=== PATIENT | female | born 2000 | race Caucasian/White ===

== ENCOUNTER 2019-01-27 15:12 | Inpatient (IN) | payer OTHER ==
--- NOTE | 2019-01-27 15:49 | ED ---
Psychiatric Complaint - HPI Summary HPI Summary: Patient is a 18 y/o F presenting to [facility] for MHE of SI w/ plan and self- inflicted laceration to left wrist. "Best friend" Maribell brought patient in to ED for evaluation. She has lacerations to left wrist, which she did a couple hours ago. No bleeding at present, no other lacerations noted. SI with plan is reported, patient states that her plan was to cut her wrists. She notes Hx of self-cutting. Patient characterizes todays cutting episode as a suicide attempt. Last cutting episode was in June, states that she had stopped cutting for two years but started again in January of 2018. Patient is an [employer] student and states that she is seeing a PA at , [facility]. Patient has no active therapist, but has had therapy previously. No previous admission for psychiatric reasons reported. She is on 40 mg of fluoxetine. PMHx of asthma endorsed. PSHx of wisdom teeth removal noted. Possible allergy to augmentin noted, states that she got "really sick" when she took it one time previously. FMHx of by suicide of great-aunt and multiple other family members is reported. Home medications reviewed. On triage, pain is denied. Patient is from [place]. LNMP ended a week ago. She is a former social tobacco smoker, notes rare alcohol consumption, and endorses marijuana usage. - History Of Current Complaint Chief Complaint: EDSuicidal Time Seen by Provider: 01/27/19 15:41 Hx Obtained From: Patient, Family/Orthotist - friend Maribell Hx Last Menstrual Period: 01/20/19 ?: No Onset/Duration: Still Present Timing: Constant Severity Initially: Severe - no pain, suicidal with a plan Severity Currently: Moderate - pain denied, but states she is still suicidal with a plan Character: Depressed Aggravating Factor(s): Nothing Alleviating Factor(s): Nothing Associated Signs And Symptoms: Positive: Sleep Disturbance Related History: Positive For: Prior Psychiatric Issues - cutting Has Suicidal: Reports: Thoughts, With A Plan, Demonstrates Gesture - Allergies/Home Medications Allergies/Adverse Reactions: Allergies Allergy/AdvReac Type Severity Reaction Status Date / Time amoxicillin [From Augmentin] Allergy Nausea And Verified 01/27/19 16:30 Vomiting clavulanic acid Allergy Nausea And Verified 01/27/19 16:30 [From Augmentin] Vomiting PMH/Surg Hx/FS Hx/Imm Hx Previously Healthy: No Respiratory History: Reports: Hx Asthma Psychiatric History: Reports: Hx Depression - Surgical History Surgical History: Yes Surgery Procedure, Year, and Place: wisdom teeth removal Infectious Disease History: No Infectious Disease History: Denies: Traveled Outside the [place] in Last 30 Days - Family History Known Family History: Positive: Other - suicide in multiple family members - Social History Occupation: Student Lives: Dormitory/Roommates Alcohol Use: Rare Hx Substance Use: Yes Substance Use Type: Reports: Marijuana Hx Tobacco Use: Yes Smoking Status (MU): Former Smoker Review of Systems Constitutional: Negative Cardiovascular: Negative Respiratory: Negative Gastrointestinal: Negative Positive: no symptoms reported Skin: Other - positive - lacerations of left wrist Neurological: Negative Psychological: Other - positive - SI with plan and attempt Positive: Depressed All Other Systems Reviewed And Are Negative: Yes Physical Exam - Summary Physical Exam Summary: Appearance: Well-appearing, no pain distress, well-nourished Skin: Warm, color reflects adequate perfusion, dry; 3 superficial cuts of left ventral forearm with bleeding controlled. Head: Normal Head/Face inspection, atraumatic Eyes: Conjunctiva clear ENT: Normal inspection Neck: Supple, no nodes, no JVD Respiratory: Lungs clear, normal breath sounds, no respiratory distress Cardio: RRR, No murmur, pulses normal, brisk capillary refill Abdomen: Soft, nontender Bowel sounds: Present Musculoskeletal: Strength Intact/ROM intact, no calf tenderness, no edema. Psychological: Tearful, good eye contact, cooperative Neuro: Alert, muscle tone normal, no focal deficit Triage Information Reviewed: Yes Vital Signs On Initial Exam: Initial Vitals Temp Pulse Resp BP Pulse Ox 98.8 F 67 19 139/89 97 01/27/19 15:23 01/27/19 15:23 01/27/19 15:23 01/27/19 15:23 01/27/19 15:23 Vital Signs Reviewed: Yes Procedures - Sedation Patient Received Moderate/Deep Sedation with Procedure: No Diagnostics - Vital Signs Vital Signs Temp Pulse Resp BP Pulse Ox 01/27/19 15:23 98.8 F 67 19 139/89 97 - Laboratory Result Diagrams: 01/27/19 16:29 01/27/19 16:29 Lab Statement: Any lab studies that have been ordered have been reviewed, and results considered in the medical decision making process. Re-Evaluation - Re-Evaluation First Eval Re-Evaluation Time: 17:33 Change: Unchanged Comment: Patient is medically cleared. Advised annex that urine is still needed. Course/Dx - Course Course Of Treatment: Patient is a 18 y/o F presenting to [facility] for MHE of SI w/ plan and self-inflicted laceration to left wrist. "Best friend" Maribell brought patient in to ED for evaluation. She has lacerations to left wrist, which she did a couple hours ago. No bleeding at present, no other lacerations noted. SI with plan is reported, patient states that her plan was to cut her wrists. She notes Hx of self-cutting. Patient characterizes todays cutting episode as a suicide attempt. Last cutting episode was in June, states that she had stopped cutting for two years but started again in January of 2018. No previous admission for psychiatric reasons noted. She is on 40 mg of fluoxetine. Patient is tearful but with good eye contact and is cooperative. Bloodwork was obtained and WNL. Beta HCG was negative. Patient was medically cleared. Advised annex that urine is still need. UA is negative. She had presumptive positive for cannabinoids on the Utox. Patient's case was reviewed by Dr. Theodore, patient will be a voluntary admit to [facility]. - Differential Dx/Clinical Impression Differential Diagnosis/HQI/PQRI: Positive: Bipolar Disorder, Depression, Suicidal Ideation, Suicidal Gesture Provider Diagnosis: Depression, Self-inflicted laceration of wrist, Suicidal ideation - Physician Notifications Discussed Care Of Patient With: Festus Theodore Time Discussed With Above Provider: 21:12 Instructed by Provider To: Other - Patient's case was reviewed by Dr. Theodore, with "M". Patient will be a voluntary admit to [facility]. Admission status was conveyed to Dr. Hennessy (the other ED MD on duty), who conveyed info to Dr. Lopez, the 's ED MD. Patient Is Medically Stable For: Psych Evaluation Discharge ED - Sign-Out/Discharge Documenting (check all that apply): Patient Departure - admit, voluntary, per Dr. Theodore to [facility] - Discharge Plan Condition: Stable [place] [place] Disposition and Condition Condition: STABLE Disposition: Psychiatric Facility [facility] - Attestation Statements Document Initiated by Scribe: Yes Documenting Scribe: CESAR ESCAMILLA Provider For Whom Scribe is Documenting (Include Credential): CARLOS LOPEZ MD Scribe Attestation: ICESAR, scribed for CARLOS LOPEZ MD on 02/15/19 at 1547. Scribe Documentation Reviewed: Yes Provider Attestation: The documentation as recorded by the CESAR byrd accurately reflects the service I personally performed and the decisions made by me, CARLOS LOPEZ MD Status of Scribe Document: Viewed
[2019-01-27 16:40] LABS: ABS Lymphocytes 1.8 10^3/ul (1.0-4.8); ABS Monocytes 0.5 10^3/ul (0-0.8); ABS Neutrophils 5.1 10^3/ul (1.5-7.7); Eosinophil % 0.6 %; Hematocrit 40 % (35-47); Hemoglobin 13.4 g/dL (12.0-16.0); Lymphocyte % 24.5 %; Mean Corpuscular HGB Conc 34 g/dL (31-36); Mean Corpuscular Hemoglobin 30 pg (27-31); Mean Corpuscular Volume 89 fL (80-97); Mean Platelet Volume 8.3 fL (7.4-10.4); Platelet Count 335 10^3/uL (150-450); Red Blood Count 4.48 10^6 /uL (3.70-4.87); Red Cell Distribution Width 13 % (10-15); White Blood Count 7.5 10^3/uL (3.5-10.8)
[2019-01-27 16:58] LABS: ALT 20 U/L (7-52); AST 22 U/L (13-39); Albumin 4.4 g/dL (3.2-5.2); Albumin/Globulin Ratio 1.6 (1-3); Alkaline Phosphatase 56 U/L (34-104); Anion Gap 7 mmol/L (2-11); BUN/Creatinine Ratio 18.9 (8-20); Blood Urea Nitrogen 14 mg/dL (6-24); CO2 Carbon Dioxide 25 mmol/L (22-32); Calcium 9.5 mg/dL (8.6-10.3); Chloride 106 mmol/L (101-111); EGFR African American 121.1 (>60); EGFR Non-African American 100.1 (>60); Globulin 2.7 g/dL (2-4); Glucose 94 mg/dL (70-100); Potassium 4.1 mmol/L (3.5-5.0); Sodium 138 mmol/L (135-145); Total Protein 7.1 g/dL (6.4-8.9)
[2019-01-27 17:13] LABS: Acetaminophen < 15 mcg/mL; Alcohol < 10 mg/dL (<10); Salicylate < 2.50 mg/dL (<30)
[2019-01-27 17:16] LABS: HCG Pregnancy < 0.60 mIU/mL
[2019-01-27 17:27] LABS: TSH (Thyroid Stimulating Horm) 1.14 mcIU/mL (0.34-5.60)
[2019-01-27 18:30] LABS: Urine Appearance Clear; Urine Bilirubin Negative (Negative); Urine Blood Negative (Negative); Urine Color Straw; Urine Glucose Negative (Negative); Urine Ketones Negative (Negative); Urine Nitrite Negative (Negative); Urine Protein Negative (Negative); Urine Specific Gravity 1.013 (1.010-1.030); Urine Urobilinogen Negative (Negative)
[2019-01-27 18:53] LABS: Urine Benzodiazepine Screen None Detected (None Detect); Urine Opiates Screen None Detected (None Detect)
[2019-01-28] MEDS ORDERED: Al Hydrox/Mg Hydrox/Simet LIQ* 30 ML UDC PO PRN (00:01)
[2019-01-28] MEDS ORDERED: Acetaminophen TAB* 325 MG PO PRN (00:01)
[2019-01-28 08:50] LABS: HDL Cholesterol 61.9 mg/dL
[2019-01-28] MEDS ORDERED: FLUoxetine CAP* 20 MG PO SCH (09:00)
[2019-01-28] MEDS ORDERED: Vitamin THERAPEUTIC TAB PO SCH (09:00)
[2019-01-28 11:30] VITALS: BP 117/65
[2019-01-28] MEDS ORDERED: Lithium Carbonate ER* 450 MG TAB.ER PO SCH (14:08)
--- NOTE | 2019-01-28 23:05 | HP ---
CC: [facility] * HISTORY AND PHYSICAL/DISCHARGE SUMMARY: DATE OF ADMISSION: 01/27/19 DATE OF DISCHARGE: 01/28/19 PROVIDER: Bettie Muñoz NP, Psychiatry. SUPERVISING PHYSICIAN: Festus Theodore MD * (DICTATED BY BETTIE MUÑOZ NP ) JUSTIFICATION FOR ADMISSION: The patient is in need of 24-hour supervision and care secondary to suicidal ideation. CHIEF COMPLAINT: "I have an overwhelming sense of despair that comes in waves. " HISTORY OF PRESENT ILLNESS: The patient is a 18-year-old female who is single and has a history of mood instability and cutting who arrives, brought in by friends by private car and is here on an involuntary status following her inability to get an appointment in time with the psychiatrist and wanting to . On Lolis's voluntary paperwork, her reason for wanting to be admission to being admitted is "wanting to " and then she wrote a little smiley face after it. When I asked her about it, she states that it is millennial humor. She states that she has an overwhelming sense of despair that comes in waves. These waves tend to last for days. The highs can come when she is taking care of herself and these highs include high energy and bad decision making. She states that she is also hyperactive at these times and that mood swings are part of her personality. She states that last year was the first time she could not hide that she needed help. She does have a way of appearing cheerful and pleasant even when internally she is struggling and full of despair. 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 She states the more I have to do the better, otherwise I feel reckless or sad. Lolis's stressors include having a double major plus a minor, doing well in school, being also on the crew team, having friends and being busy most of the time. She cannot say what exactly is making her sad. She does state that it has been going on since she was about 8 years old. Her sleep is often disrupted. Her interests wax and wane. She does feel guilty for being sad. Her energy when she is depressed is lower but when she is not depressed she can be a little bit grandiose and distractible. She has difficulty concentrating much of the time. Her appetite is large. She is able to contain herself. She is chatty but not overly talkative and at times she does have suicidal ideation. PAST PSYCHIATRIC HISTORY: She has no previous admission. She has no psychiatrist at college. She is being prescribed 40 mg of fluoxetine by an SINTER PRESS OPERATOR at [employer] at this time. She comes to the hospital with suicidal ideation, which she states is getting worse over time. She does not have access to weapons. Her previous psychiatric medications have included fluoxetine and she does not recall anything different than that. PAST MEDICAL HISTORY: She has had her wisdom teeth extracted. TRAUMA HISTORY: Denied. FORENSIC ISSUES: Denied. FAMILY HISTORY: Her mother's sister has struggled with mental illness. She is not sure of the diagnosis but suspects that it is bipolar disorder and also that there is addiction involved to pills and notes that she goes to Alcoholics Anonymous. Her father is an alcoholic and his family struggles with alcoholism. Her mother is depressed but does not have treatment. It is suspected that she also has difficulty managing her alcohol use. There was a suicide in the family by her great grandmother's sister. There are no more details about that. SUBSTANCE ABUSE: Lolis is a casual cigarette smoker. She does drink alcohol, but she tries to reduce that due to the acknowledge that alcoholism is in her family. SOCIAL HISTORY: She is from [place], [place] where she lives with her mom and her stepfather, who is a psychologist. She is neither nor partnered right now. She has been having sexual relations with both men and women. She is not in any legal trouble. She is not worried about sexually transmitted infections or other sexual issues. We did discuss the use of an IUD to reduce mood swings around her menstrual cycle. REVIEW OF SYSTEMS: Lolis reports feeling fatigued. She denies shortness of breath, heat or cold intolerance, chest pain, or abdominal pain. She denies neurological symptoms. She denies fevers or changes in weight. PHYSICAL EXAMINATION GENERAL APPEARANCE: Well-appearing, no pain distress, well-nourished. VITAL SIGNS: On 01/28/19 at 0800, temperature was 98.3, pulse 55, respirations 16, O2 sat on room air 99%, blood pressure 117/65. HEENT: Head: Normal head and face inspection. Atraumatic. Eyes: Conjunctivae clear. ENT: Normal inspection. NECK: Supple. No nodes. No JVD. RESPIRATORY: Lungs clear. Normal breath sounds. No respiratory distress. CARDIO: RRR. No murmur. Pulses normal. Brisk capillary refill. ABDOMEN: Soft, nontender, bowel sounds present. MUSCULOSKELETAL: Strength intact. Range of motion intact. No calf tenderness. No edema. NEUROLOGICAL: Alert and muscle tone normal. No focal deficits. SKIN: Warm, color reflects adequate perfusion. It is dry. Three cuts on the left ventral forearm with bleeding controlled. LABORATORY DATA: Most data are within normal limits, exceptions include only that her cannabis screen is positive. It should be noted that her hemoglobin A1c is 5.3, triglycerides 115, cholesterol 192, LDL cholesterol 107, HDL cholesterol 61.9, TSH is 1.14. MENTAL STATUS EXAM AT TIME OF INTAKE: Lolis is 5 feet 11 inches, 155-pound woman, who appears healthy. She sits appropriately still and attentively, she is calm and cooperative. Her speech is of normal rate, tone, and volume. She does appear to be incongruently euthymic in that she is wide-eyed, pleasant, smiling, and at the same time endorsing recent suicidal thoughts which are not active at this time. Her affect is full. Her thought processes appear to be normal. She is not delusional. She is not homicidal. She is not currently suicidal, but she was upon on admission. She is not hallucinating. Her insight is good. Her judgment is fair. She is alert and oriented x4. DIAGNOSIS: Bipolar I disorder, current episode, mixed. IMPRESSION: Lolis is a 18-year-old single white woman, who comes to the hospital with suicidal ideation following a series of mood episodes that left her unstable and unhappy. PLAN: The patient is admitted to the adult behavioral health unit and placed on 15- minute checks for her own safety. She is encouraged to participate in supportive milieu, individual and group therapies. Her length of stay will be 1 to 2 days. We are starting her on lithium 450 mg at bedtime to address mood symptoms. We are stopping Prozac 40. CONDITION AT THE TIME OF DISCHARGE: Lolis is improved, psychiatrically cleared , and stable. Her mother who came from [place] is agreeable to her discharge as Lolis, in fact she advocates for herself to leave before the weekend begins. She has done well here psychiatrically. She is eager to try lithium and is also agreeable to stopping the fluoxetine that she was taking as that can lead to margarita and more rapid mood instability. She will be attending [facility]. At the time of discharge, she is calm, cooperative and makes good eye contact. She is alert and oriented x4. Her grooming is good. Her speech pace is normal. Her thought processes are logical. She is not psychotic or delusional. She denies AH, VH, SI, and HI. Her insight and judgment are good. She is willing to follow up. She is urged to see a therapist and she is also requested to spend the weekend with her mother who came from [place] to be with her. DISCHARGE INSTRUCTIONS TO THE PATIENT: A. Medications: 1. Discontinue Prozac 40. 2. Begin lithium ER 450 mg at bedtime. B. Diet is regular. C. Activities as tolerated. Lolis is a nonsmoker. There are no studies pending at the time of discharge. D. Followup care. She has an appointment at 4:30 p.m. on 01/28/19 with either Colten or Rose today at [facility]. Their phone number is [phone]. There is a note to please advocate for yourself to get an appointment with the prescriber to continue lithium prescription. E. Disposition. She is being discharged back home with a brief stay with her mother in [place]. F. Substance abuse followup is not indicated. HOSPITAL COURSE: Psychiatric treatment was rendered. Lolis did well on the unit and did not go to many groups as I interrupted her to get her out to discuss her treatment. She was fairly seclusive to herself. Being informed that she has a diagnosis of bipolar disorder was reassuring to her and reduced her distress significantly. The information provided was helpful and explained much of the puzzling behavior she had previously been burdened with. It was quite relieving to her, so much so that her hopes for the future were increased. Medication changes will take place outside of the hospital and they include starting lithium ER 450 mg at bedtime and discontinuing Prozac 40 mg. I did meet with her mother, who is agreeable to her coming home with her. She is familiar with bipolar disorder as evidenced by her nodding and commenting positively on how these diagnostic features coincide with Lolis's presentation. No consults were entered for her. She is improved over her intake. She is no longer suicidal. She is much relieved by having a diagnosis that helps her make sense of her symptoms. She states that this is making a large difference to her and that she wants to leave as she is bored here at the hospital and she feels as though she has gotten everything she needs. She is future-oriented and eager to obtain appropriate treatment in the outpatient setting. BETTIE MUÑOZ, DON [id number]/[facility] #: [id number] LARRY
== END 2019-01-28 15:43 | disposition home or self-care (01) | DRG 753 ==
LOC: ED 15:12 → BSU 21:47
PROVIDERS: ADMIT Psychiatry & Neurology Psychiatry; ATTEND Psychiatry & Neurology Psychiatry
DX: F31.60 Bipolar disorder, current episode mixed, unspecified (principal); R45.851 Suicidal ideations; Z79.899 Other long term (current) drug therapy; Z81.8 Family history of other mental and behavioral disorders; Z81.1 Family history of alcohol abuse and dependence; Z72.0 Tobacco use
CPT/HCPCS: 36415; 80053; 80061; 80307; 80320; 80329; 81003; 83036; 84443; 84702; 85025; 99284; A9270-GY; G0480